=== PATIENT | male | born 1990 | race Hispanic/Latino ===

== ENCOUNTER 2021-03-20 06:36 | Inpatient (IN) | payer OTHER ==
--- OUTSIDE RECORDS SUMMARY | 2021-03-20 06:39 | XMS REPORT | Continuity of Care Document ---
:1990 Author Organization [facility] t Address [address] [place] [address] Dr. Hudson [address] [place] [id number] Care Team Providers Name Role Phone Unavailable Unavailable Unavailable Problems This patient has no known problems. Allergies, Adverse Reactions, Alerts This patient has no known allergies or adverse reactions. Medications This patient has no known medications. Procedures This patient has no known procedures. Results This patient has no known results.
[2021-03-20 08:07] LABS: Absolute Lymphocytes (CBC) 1.4 K/uL (0.7-4.9); Hematocrit 46.3 % (39.6-49.0); Lymphocytes % 11.1 % (15.3-44.8); MPV 7.7 fL (7.6-11.3); RBC Red Blood Cell Count 5.37 M/uL (4.33-5.43)
[2021-03-20] MEDS ORDERED: NA CHLORIDE 0.9% 1,000 ML ONE ×2 (08:12→08:44)
[2021-03-20] MEDS ORDERED: MORPHINE 4 MG/ML SYR ONE ×3 (08:12→12:19)
[2021-03-20] MEDS ORDERED: ONDANSETRON 4 MG/2 ML VIAL ONE ×3 (08:12→12:19)
[2021-03-20 08:20] LABS: Albumin 3.9 g/dL (3.4-5.0); Bilirubin Direct 0.1 mg/dL (0-0.2); Bilirubin Total 0.3 mg/dL (0.2-1.0); Potassium 3.9 mmol/L (3.5-5.1); Protein, Total 8.1 g/dL (6.4-8.2)
[2021-03-20] MEDS ORDERED: CIPROFLOXACIN 400mg IV 400 MG/200 ML BAG IV ONE (08:44)
[2021-03-20] MEDS ORDERED: METRONIDAZOLE 500mg IVPB 500 MG/100 ML BAG IV ONE (08:44)
--- NOTE | 2021-03-20 10:21 | RAD REPORT ---
EXAM DESCRIPTION: CT - Abdomen Pelvis W Contrast - 03/20/2021 10:04 am CLINICAL HISTORY: Abdominal pain. COMPARISON: 2013 TECHNIQUE: Computed axial tomography of the abdomen and pelvis was obtained. 100 cc Isovue-300 is ad ministered intravenously. Oral contrast was given. All CT scans are performed using dose optimization technique as appropriate and may include automated exposure control or mA/KV adjustment according to patient size. FINDINGS: The liver, spleen, pancreas, adrenals and kidneys appear unremarkable. Colectomy with Romana's pouch. Entire small bowel is mildly to moderately dilated. 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 A loop of small bowel is narrowed as it enters the osteotomy site resulting in obstruction. Small amount of ascites. IMPRESSION: A loop of ileum is obstructed as it enters a right lower quadrant ileostomy. Remainder of the small bowel is mildly to moderately dilated
--- NOTE | 2021-03-20 10:40 | EDPHYS ---
Physician Documentation [facility] Name: Roberth Thornton Age: 30 yrs Sex: Male : 1990 Arrival Date: 03/20/2021 Time: 06:43 Bed 13 Private MD: SONIDO Physician Ranadll Bartholomew HPI: 03/20 10:35 This 30 yrs old Male presents to ER via Ambulatory with complaints of wally Abdominal Pain. 10:35 The patient presents with abdominal pain in the upper abdomen, in the lower abdomen. wally Onset: The symptoms/episode began/occurred 3 day(s) ago. The symptoms do not radiate. Associated signs and symptoms: Pertinent positives: nausea and vomiting. Modifying factors: The symptoms are alleviated by nothing, the symptoms are aggravated by nothing. Severity of pain: At its worst the pain was moderate in the emergency department the pain is unchanged. The patient has not experienced similar symptoms in the past. Historical: - Allergies: 07:09 No Known Allergies; aa5 - PMHx: 07:09 Colon Cancer; aa5 - PSHx: 07:09 Colostomy; aa5 - Immunization history:: Adult Immunizations unknown. - Social history:: Smoking status: Patient reports the use of cigarette tobacco products, denies chronic smoking, but will smoke occasionally. - Family history:: not pertinent. ROS: 10:35 Constitutional: Negative for fever, chills, and weight loss, Eyes: Negative for injury, wally pain, redness, and discharge, ENT: Negative for injury, pain, and discharge, Neck: Negative for injury, pain, and swelling, Cardiovascular: Negative for chest pain, palpitations, and edema, Respiratory: Negative for shortness of breath, cough, wheezing, and pleuritic chest pain, Back: Negative for injury and pain, : Negative for injury, bleeding, discharge, and swelling, MS/Extremity: Negative for injury and deformity, Skin: Negative for injury, rash, and discoloration, Neuro: Negative for headache, weakness, numbness, tingling, and seizure, Psych: Negative for depression, anxiety, suicide ideation, homicidal ideation, and hallucinations, Allergy/Immunology: Negative for hives, rash, and allergies, Endocrine: Negative for neck swelling, polydipsia, polyuria, polyphagia, and marked weight changes, Hematologic/Lymphatic: Negative for swollen nodes, abnormal bleeding, and unusual bruising. 10:35 Abdomen/GI: Positive for abdominal pain, nausea and vomiting, of the right lower quadrant. Exam: 10:35 Constitutional: This is a well developed, well nourished patient who is awake, alert, wally and in no acute distress. Head/Face: Normocephalic, atraumatic. Eyes: Pupils equal round and reactive to light, extra-ocular motions intact. Lids and lashes normal. Conjunctiva and sclera are non-icteric and not injected. Cornea within normal limits. Periorbital areas with no swelling, redness, or edema. ENT: Nares patent. No nasal discharge, no septal abnormalities noted. Tympanic membranes are normal and external auditory canals are clear. Oropharynx with no redness, swelling, or masses, exudates, or evidence of obstruction, uvula midline. Mucous membranes moist. Neck: Trachea midline, no thyromegaly or masses palpated, and no cervical lymphadenopathy. Supple, full range of motion without nuchal rigidity, or vertebral point tenderness. No Meningismus. Chest/axilla: Normal chest wall appearance and motion. Nontender with no deformity. No lesions are appreciated. Cardiovascular: Regular rate and rhythm with a normal S1 and S2. No gallops, murmurs, or rubs. Normal PMI, no JVD. No pulse deficits. Respiratory: Lungs have equal breath sounds bilaterally, clear to auscultation and percussion. No rales, rhonchi or wheezes noted. No increased work of breathing, no retractions or nasal flaring. Back: No spinal tenderness. No costovertebral tenderness. Full range of motion. Male : Normal genitalia with no discharge or lesions. Skin: Warm, dry with normal turgor. Normal color with no rashes, no lesions, and no evidence of cellulitis. MS/ Extremity: Pulses equal, no cyanosis. Neurovascular intact. Full, normal range of motion. Neuro: Awake and alert, GCS 15, oriented to person, place, time, and situation. Cranial nerves II-XII grossly intact. Motor strength 5/5 in all extremities. Sensory grossly intact. Cerebellar exam normal. Normal gait. Psych: Awake, alert, with orientation to person, place and time. Behavior, mood, and affect are within normal limits. 10:35 Abdomen/GI: Inspection: abdomen appears normal, Bowel sounds: active, Palpation: mild abdominal tenderness, moderate abdominal tenderness, in the right upper quadrant, left upper quadrant and right lower quadrant, Liver: no appreciated palpable abnormalities, Hernia: not appreciated. Vital Signs: 06:57 BP 140 / 102; Pulse 75; Resp 18 S; Temp 98.4(O); Pulse Ox 99% on R/A; Weight 81.65 kg aa5 (R); Height 5 ft. 6 in. (167.64 cm) (R); Pain 10/10; 08:30 BP 130 / 89; Pulse 78; Resp 16 S; Pulse Ox 100% on R/A; aa5 10:39 BP 139 / 88; Pulse 74; Resp 16; Pulse Ox 100% on R/A; vg1 11:00 BP 126 / 93; Pulse 75; Resp 16; Pulse Ox 98% on R/A; vg1 12:00 BP 146 / 96; Pulse 74; Resp 14; Pulse Ox 100% ; vg1 13:00 BP 140 / 87; Pulse 70; Resp 16; Pulse Ox 100% on R/A; vg1 06:57 Body Mass Index 29.05 (81.65 kg, 167.64 cm) [facility] MDM: 07:23 Patient medically screened. wally 10:37 Differential diagnosis: bowel obstruction, cholecystitis, Cholelithiasis, wally diverticulitis, gastritis, Mesenteric ischemia or infarction, non-specific abd pain, pancreatitis, Peptic Ulcer Disease, Ureterolithiasis, urinary tract infection. Data reviewed: vital signs, nurses notes, lab test result(s), radiologic studies, CT scan. Data interpreted: teletypesetter monitor: rate is 78 beats/min, rhythm is regular, Pulse oximetry: on room air. Test interpretation: by ED physician or midlevel provider:. Counseling: I had a detailed discussion with the patient and/or guardian regarding: the historical points, exam findings, and any diagnostic results supporting the discharge/admit diagnosis, lab results, radiology results, the need for outpatient follow up, for definitive care, 03/20 07:44 Order name: Basic Metabolic Panel; Complete Time: 10:34 03/20 07:44 Order name: CBC with Diff [facility] 03/20 07:44 Order name: Hepatic Function; Complete Time: 10:34 [facility] 03/20 07:44 Order name: Lipase; Complete Time: 10:34 [facility] 03/20 10:52 Order name: Manual Differential EDMS 03/20 10:57 Order name: COVID-19 : Document "Date of Symptom Onset" if Symptomatic. eb 03/20 07:48 Order name: CT Abd/Pelvis - PO and IV Contrast; Complete Time: 10:34 hb 03/20 12:00 Order name: CORONAVIRUS EDMS 03/20 12:52 Order name: SARS-COV-2 RT PCR EDMS 03/20 07:44 Order name: IV Saline Lock; Complete Time: 07:44 aa5 03/20 07:44 Order name: Labs collected and sent; Complete Time: 07:44 aa5 Administered Medications: 07:54 Drug: Zofran (Ondansetron) 4 mg Route: IVP; Site: left antecubital; aa5 08:05 Follow up: Response: No adverse reaction aa5 07:56 Drug: morphine 4 mg Route: IVP; Site: left antecubital; aa5 08:05 Follow up: Response: No adverse reaction aa5 07:56 Drug: NS 0.9% 1000 ml Route: IV; Rate: 1 bolus; Site: left antecubital; aa5 09:15 Follow up: IV Status: Completed infusion; IV Intake: 1000ml aa5 08:34 Drug: Flagyl (metroNIDAZOLE) 500 mg Volume: 100 ml; Route: IVPB; Rate: 200 ml/hr; aa5 Infused Over: 30 mins; Site: left antecubital; 09:15 Follow up: Response: No adverse reaction; IV Status: Completed infusion aa5 08:34 Drug: NS 0.9% 1000 ml Route: IV; Rate: 125 ml/hr; Site: left antecubital; aa5 13:33 Follow up: IV Status: Infusion continued upon admission vg1 08:38 Drug: Zofran (Ondansetron) 4 mg Route: IVP; Site: left antecubital; aa5 09:15 Follow up: Response: No adverse reaction aa5 08:38 Drug: morphine 4 mg Route: IVP; Site: left antecubital; aa5 09:15 Follow up: Response: No adverse reaction; Pain is decreased aa5 09:15 Drug: Cipro (ciprofloxacin) 400 mg Volume: 200 ml; Route: IVPB; Infused Over: 60 mins; aa5 Site: left antecubital; 10:57 Follow up: IV Status: Completed infusion vg1 12:01 Drug: Zofran (Ondansetron) 4 mg Route: IVP; Site: left antecubital; vg1 12:44 Follow up: Response: No adverse reaction vg1 12:03 Drug: morphine 4 mg Route: IVP; Site: left antecubital; vg1 12:44 Follow up: Response: No adverse reaction; Pain is decreased vg1 13:45 Drug: Phenergan (promethazine) 12.5 mg Route: IVP; Site: left antecubital; vg1 13:50 Follow up: Response: Medication administered at discharge. vg1 Disposition: 03/20/21 10:40 Hospitalization ordered by Mitch Carter for Inpatient Admission. Preliminary diagnosis are Other intestinal obstruction - small bowel, ileostomy and parastomal hernia, Abdominal tenderness. - Bed requested for Telemetry/MedSurg (Inpatient). - Status is Inpatient Admission. vg1 - Condition is Stable. - Problem is new. - Symptoms have improved. Signatures: Dispatcher [employer] EDSC Randall Bartholomew MD MD cha Calderon, Audri, RN RN aa5 Heidi Ellis, ZABRINA RN Hina Wilkes Victoria, RN RN vg1 Corrections: (The following items were deleted from the chart) 13:20 10:40 Hospitalization Ordered by Mitch Carter MD for Inpatient Admission. Preliminary eb diagnosis is Other intestinal obstruction - small bowel, ileostomy and parastomal hernia; Abdominal tenderness. Bed requested for Telemetry/MedSurg (Inpatient). Status is Inpatient Admission. Condition is Stable. Problem is new. Symptoms have improved. wally 13:49 13:20 03/20/2021 10:40 Hospitalization Ordered by Mitch Carter MD for Inpatient vg1 Admission. Preliminary diagnosis is Other intestinal obstruction - small bowel, ileostomy and parastomal hernia; Abdominal tenderness. Bed requested for Telemetry/MedSurg (Inpatient). Status is Inpatient Admission. Condition is Stable. Problem is new. Symptoms have improved. eb
--- NOTE | 2021-03-20 10:40 | ER ---
Nurse's Notes [facility] Name: Roberth Thornton Age: 30 yrs Sex: Male : 1990 Arrival Date: 03/20/2021 Time: 06:43 Bed 13 Private MD: Diagnosis: Other intestinal obstruction-small bowel, ileostomy and parastomal hernia;Abdominal tenderness Presentation: 03/20 06:57 Chief complaint: Patient states: generalized abd pain since last night, nausea, denies aa5 vomiting. Reports no output to colostomy bag. Reports last meal was last night at 2100. 06:57 Coronavirus screen: At this time, the client does not indicate any symptoms associated aa5 with coronavirus-19. Ebola Screen: Patient negative for fever greater than or equal to 101.5 degrees Fahrenheit, and additional compatible Ebola Virus Disease symptoms. Initial Sepsis Screen: Does the patient meet any 2 criteria? No. Patient's initial sepsis screen is negative. Does the patient have a suspected source of infection? No. Patient's initial sepsis screen is negative. Risk Assessment: Do you want to hurt yourself or someone else? Patient reports no desire to harm self or others. Onset of symptoms was March 2021. 06:57 Acuity: TRAY 3 aa5 06:57 Method Of Arrival: Ambulatory aa5 Historical: - Allergies: 07:09 No Known Allergies; aa5 - PMHx: 07:09 Colon Cancer; aa5 - PSHx: 07:09 Colostomy; aa5 - Immunization history:: Adult Immunizations unknown. - Social history:: Smoking status: Patient reports the use of cigarette tobacco products, denies chronic smoking, but will smoke occasionally. - Family history:: not pertinent. Screenin:44 Abuse screen: Denies threats or abuse. Nutritional screening: No deficits noted. aa5 Tuberculosis screening: No symptoms or risk factors identified. Fall Risk None identified. Assessment: 07:10 General: Appears uncomfortable, Behavior is calm, cooperative. Pain: Complains of pain aa5 in right upper quadrant, left upper quadrant, right lower quadrant and left lower quadrant Pain currently is 10 out of 10 on a pain scale. Pain began "last night" Is continuous. Neuro: Level of Consciousness is awake, alert, obeys commands, Oriented to person, place, time, situation. Cardiovascular: Heart tones S1 S2 present Rhythm is regular. Respiratory: Airway is patent Respiratory effort is even, unlabored, Respiratory pattern is regular, symmetrical. GI: Abdomen is round non-distended, Colostomy site is clean and dry. Ostomy appliance is intact. Ostomy appears healthy and protruded which pt reports is baseline. Bowel sounds present X 4 quads. Abdomen is tender to palpation X 4 quads. Reports nausea, Patient currently denies vomiting, Reports no output to colostomy. : No signs and/or symptoms were reported regarding the genitourinary system. EENT: No signs and/or symptoms were reported regarding the EENT system. Derm: Skin is pink, warm \\T\\ dry. Musculoskeletal: Range of motion: intact in all extremities. 07:54 Reassessment: No changes from previously documented assessment. Patient is alert, aa5 oriented x 3, equal unlabored respirations, skin warm/dry/pink. 08:30 Reassessment: Pt ambulatory to restroom. . aa5 08:34 Reassessment: Patient is alert, oriented x 3, equal unlabored respirations, skin aa5 warm/dry/pink. Pt denies nausea, pt currently drinking CT oral contrast. Pt reports pain is a 9/10, reports no improvement to pain. . 08:40 Reassessment: Patient is alert, oriented x 3, equal unlabored respirations, skin aa5 warm/dry/pink. Pt finished CT oral contrast, CT notified.. 09:15 Reassessment: Patient is alert, oriented x 3, equal unlabored respirations, skin aa5 warm/dry/pink. Patient states feeling better. Pt reports pain has decreased to 6/10 on [address] scale. Awaiting CT scan, pt aware of wait time. . 09:57 Reassessment: Patient appears in no apparent distress at this time. Patient and/or vg1 family updated on plan of care and expected duration. Pain level reassessed. Patient is alert, oriented x 3, equal unlabored respirations, skin warm/dry/pink. Pt taken to CT. 11:57 Reassessment: Received VO from DR Bartholomew to administer 4 mg Morphine IVP x1 and 4 mg vg1 Zofran IVP x1. 12:44 Reassessment: Patient appears in no apparent distress at this time. Patient and/or vg1 family updated on plan of care and expected duration. Pain level reassessed. Patient is alert, oriented x 3, equal unlabored respirations, skin warm/dry/pink. 13:05 Reassessment: Patient appears in no apparent distress at this time. Patient and/or vg1 family updated on plan of care and expected duration. Pain level reassessed. Patient is alert, oriented x 3, equal unlabored respirations, skin warm/dry/pink. 13:43 Reassessment: Received VO from DR Bartholomew to administer Phenergan 12.5 mg IVP x1. vg1 Vital Signs: 06:57 BP 140 / 102; Pulse 75; Resp 18 S; Temp 98.4(O); Pulse Ox 99% on R/A; Weight 81.65 kg aa5 (R); Height 5 ft. 6 in. (167.64 cm) (R); Pain 10/10; 08:30 BP 130 / 89; Pulse 78; Resp 16 S; Pulse Ox 100% on R/A; aa5 10:39 BP 139 / 88; Pulse 74; Resp 16; Pulse Ox 100% on R/A; vg1 11:00 BP 126 / 93; Pulse 75; Resp 16; Pulse Ox 98% on R/A; vg1 12:00 BP 146 / 96; Pulse 74; Resp 14; Pulse Ox 100% ; vg1 13:00 BP 140 / 87; Pulse 70; Resp 16; Pulse Ox 100% on R/A; vg1 06:57 Body Mass Index 29.05 (81.65 kg, 167.64 cm) aa5 ED Course: 06:43 Patient arrived in ED. mr 06:57 Arm band placed on Patient placed in an exam room, on a stretcher. aa5 07:00 Patient has correct armband on for positive identification. Bed in low position. Call [facility] light in reach. Side rails up X 1. Adult w/ patient. Pulse ox on. NIBP on. 07:05 Pilar Rodgers, ZABRINA is Primary Nurse. aa 07:09 Triage completed. aa5 07:23 Randall Bartholomew MD is Attending Physician. [facility] 07:44 Initial lab(s) drawn, by me, sent to lab. Missed attempt(s): 20 gauge in right aa5 antecubital area. Bleeding controlled, band aid applied, catheter tip intact. Inserted saline lock: 20 gauge in left antecubital area, using aseptic technique. Blood collected. 09:56 Primary Nurse role handed off by Pilar Rodgers RN vg1 09:56 Sapna Valenzuela RN is Primary Nurse. vg1 10:00 Report given to ZABRINA Alejo. aa5 10:05 CT Abd/Pelvis - PO and IV Contrast In Process Unspecified. EDMS 10:38 Mitch Carter MD is Hospitalizing Provider. [facility] 13:30 No provider procedures requiring assistance completed. Patient admitted, IV remains in vg1 place. Administered Medications: 07:54 Drug: Zofran (Ondansetron) 4 mg Route: IVP; Site: left antecubital; aa5 08:05 Follow up: Response: No adverse reaction aa5 07:56 Drug: morphine 4 mg Route: IVP; Site: left antecubital; aa5 08:05 Follow up: Response: No adverse reaction aa5 07:56 Drug: NS 0.9% 1000 ml Route: IV; Rate: 1 bolus; Site: left antecubital; aa5 09:15 Follow up: IV Status: Completed infusion; IV Intake: 1000ml aa5 08:34 Drug: Flagyl (metroNIDAZOLE) 500 mg Volume: 100 ml; Route: IVPB; Rate: 200 ml/hr; aa5 Infused Over: 30 mins; Site: left antecubital; 09:15 Follow up: Response: No adverse reaction; IV Status: Completed infusion aa5 08:34 Drug: NS 0.9% 1000 ml Route: IV; Rate: 125 ml/hr; Site: left antecubital; aa5 13:33 Follow up: IV Status: Infusion continued upon admission vg1 08:38 Drug: Zofran (Ondansetron) 4 mg Route: IVP; Site: left antecubital; aa5 09:15 Follow up: Response: No adverse reaction aa5 08:38 Drug: morphine 4 mg Route: IVP; Site: left antecubital; aa5 09:15 Follow up: Response: No adverse reaction; Pain is decreased aa5 09:15 Drug: Cipro (ciprofloxacin) 400 mg Volume: 200 ml; Route: IVPB; Infused Over: 60 mins; aa5 Site: left antecubital; 10:57 Follow up: IV Status: Completed infusion vg1 12:01 Drug: Zofran (Ondansetron) 4 mg Route: IVP; Site: left antecubital; vg1 12:44 Follow up: Response: No adverse reaction vg1 12:03 Drug: morphine 4 mg Route: IVP; Site: left antecubital; vg1 12:44 Follow up: Response: No adverse reaction; Pain is decreased vg1 13:45 Drug: Phenergan (promethazine) 12.5 mg Route: IVP; Site: left antecubital; vg1 13:50 Follow up: Response: Medication administered at discharge. vg1 Intake: 09:15 IV: 1000ml; Total: 1000ml. aa5 Outcome: 10:40 Decision to Hospitalize by Provider. wally 13:30 Admitted to Med/surg accompanied by tech, via wheelchair, room 427, with chart, Report vg1 called to ZABRINA Gross 13:30 Condition: stable 13:30 Instructed on the need for admit. 13:49 Patient left the ED. vg1 Signatures: Dispatcher [employer] Randall Squires MD MD cha Rivera, Mary mr Calderon, Audri, RN RN aa5 Sapna Valenzuela RN RN vg1
[2021-03-20 10:53] LABS: Blood Morphology Comment NOT SEEN (NOT SEEN); Platelet Estimate ADEQ
[2021-03-20 14:00] VITALS: BMI 29.0
[2021-03-20] MEDS ORDERED: PROMETHAZINE INJ 25 MG/ML AMP ONE (14:03)
[2021-03-20] MEDS ORDERED: ACETAMINOPHEN 500 MG TAB PO PRN (14:12)
[2021-03-20] MEDS ORDERED: MORPHINE 4 MG/ML SYR IV PRN ×2 (14:12→16:11)
[2021-03-20] MEDS: METRONIDAZOLE 500mg IVPB 500 MG/100 ML BAG IV SCH ×2 (14:30→20:36)
[2021-03-20] MEDS: D5 0.45 NS 1,000 ML IV SCH ×2 (14:43→22:25)
[2021-03-20] MEDS ORDERED: DIAZEPAM 5 MG TABLET PO ONE (16:16)
--- NOTE | 2021-03-20 16:55 | P.HP ---
Date of Service: 03/20/21 PC: This 30-year-old male presents emergency room with severe abdominal pain for diagnosis and treatment. HPC: Patient states he has been having nausea and vomiting for the last few days. Describes it as severe. Has also had cramping abdominal pain, and tenderness around his stoma. PMH: Crohn's disease PSHx: Ileostomy has a 5-year-old SOC: No known allergies is not on any medications. SYS REVIEW: No cough, wheeze, shortness of breath. No chest pain or palpitations. Denies any urinary complaints. States up until now has not had many problems with his stoma. He does not have a GI doctor nor a family doctor. O/E awake alert mildly uncomfortable at the moment HEENT: Within normal limits Chest: Air movement equal bilaterally ABD: Abdomen is soft, does have reducible hernia around his stoma. His stoma is viable. It is not tense and engorged. No bloody fluid and his ileostomy bag. LOCO: Intact DATA: CT scan suggested earlier partial small bowel obstruction. IMPRESSION: Patient appears to have a parastomal hernia that has been causing him some issues. PLAN: The patient the current time does not appear to be in surgical crisis. I have ordered some pain medicine and some muscle relaxants. At the current time would recommend we observe him. I asked him if he had ever discuss surgical op tions of possibly being Put back together. He said he had thought about a but never had actually discussing with a surgeon. He is not on any and medication for his Crohn's disease. Nor does not sound like the patient has any any flare- ups over the last 20 years. My plan would be to allow this partial small-bowel obstruction to resolve, get him in contact with a GI specialist for workup for e stablished in the state of his Crohn's disease. Perhaps at that point we can initiate some discussions with him about his surgical options and the where if and when would be the best time and place to get that done. He is agreeable with this. Will reassess in the a.m..
[2021-03-20] MEDS: ONDANSETRON 4 MG/2 ML VIAL IV PRN (20:35)
[2021-03-20] MEDS: FAMOTIDINE 20 MG/2 ML VIAL IV SCH (20:36)
[2021-03-20] MEDS: CIPROFLOXACIN 400mg IV 400 MG/200 ML BAG IV SCH (20:36)
[2021-03-20] MEDS ORDERED: MINERAL OIL 30 ML UCUP PO ONE (21:00)
[2021-03-21] MEDS: METRONIDAZOLE 500mg IVPB 500 MG/100 ML BAG IV SCH ×4 (02:30→20:12)
[2021-03-21] MEDS: MORPHINE 4 MG/ML SYR IV PRN ×2 (02:46→10:02)
[2021-03-21 04:07] LABS: Absolute Lymphocytes (CBC) 1.2 K/uL (0.7-4.9); Basophils % 0.1 % (0-1.3); Hematocrit 43.3 % (39.6-49.0); Lymphocytes % 10.8 % (15.3-44.8); MPV 7.6 fL (7.6-11.3); RBC Red Blood Cell Count 5.04 M/uL (4.33-5.43)
[2021-03-21 04:26] LABS: ALT/SGPT 43 U/L (12-78); AST/SGOT 18 U/L (15-37); Albumin 3.2 g/dL (3.4-5.0); Alkaline Phosphatase 99 U/L (45-117); BUN Blood Urea Nitrogen 5 mg/dL (7-18); Bicarbonate 31 mmol/L (21-32); Bilirubin Direct 0.1 mg/dL (0-0.2); Bilirubin Total 0.6 mg/dL (0.2-1.0); Glucose Level 122 mg/dL (74-106); Lipase 116 U/L (73-393); Potassium 4.3 mmol/L (3.5-5.1); Protein, Total 7.1 g/dL (6.4-8.2); Sodium Level 140 mmol/L (136-145)
[2021-03-21] MEDS: D5 0.45 NS 1,000 ML IV SCH ×3 (07:20→17:47)
[2021-03-21] MEDS: CIPROFLOXACIN 400mg IV 400 MG/200 ML BAG IV SCH ×2 (08:25→20:12)
[2021-03-21] MEDS: FAMOTIDINE 20 MG/2 ML VIAL IV SCH ×2 (08:27→20:12)
[2021-03-21] MEDS: ONDANSETRON 4 MG/2 ML VIAL IV PRN (10:02)
--- NOTE | 2021-03-21 16:11 | P.PN ---
Date of Service: 03/21/21 S: Patient states he feels so much better today. Minimal discomfort. Has been up ambulating. Still no bowel movement or gas in his bag however. When he woke up this morning, the intestines were reduced inside. Now because he has been up there protruding. O: The is soft, minimal tenderness, no guarding or rebound. A: Partial small bowel obstruction due to his parastomal hernia which is been reduced (now it is a out but is reducible). P: Once again, I discussed the patient's options. I explained to him should be go and have to repair his parastomal hernia, that would involve an operation potential risks and benefits. I also told him that he may be a candidate to have this reversed. My plan is to allow him to explore his options with a player development manager and surgical team to see about having the colostomy reversed once and for all. He is interested in this possibility. At the moment, he does not require urgent surgical intervention. Most likely will be able to discharge him in the a.m.. I have started him on a soft mechanical diet.
[2021-03-21] MEDS ORDERED: MINERAL OIL 30 ML UCUP PO ONE (20:00)
[2021-03-21] MEDS ORDERED: DIAZEPAM 5 MG TABLET PO ONE (21:00)
[2021-03-22] MEDS: D5 0.45 NS 1,000 ML IV SCH ×2 (01:59→06:12)
[2021-03-22] MEDS: METRONIDAZOLE 500mg IVPB 500 MG/100 ML BAG IV SCH ×3 (02:00→14:30)
[2021-03-22 08:03] VITALS: O2SAT 95
[2021-03-22] MEDS: CIPROFLOXACIN 400mg IV 400 MG/200 ML BAG IV SCH (08:15)
[2021-03-22] MEDS: FAMOTIDINE 20 MG/2 ML VIAL IV SCH (08:15)
[2021-03-22 08:47] LABS: Absolute Lymphocytes (CBC) 1.5 K/uL (0.7-4.9); Basophils % 0.5 % (0-1.3); Lymphocytes % 26.6 % (15.3-44.8); MPV 7.5 fL (7.6-11.3)
[2021-03-22 16:34] VITALS: BP 112/59; TEMP 97.5
--- NOTE | 2021-03-29 14:25 | P.DS ---
Admission Date: 03/20/21 Discharge Date: 03/29/21 Discharge Condition: GOOD Reason for Admission: Peristomal hernia, partial small-bowel obstruction Brief History of Present Illness: This patient, who was had a stoma since childhood, present with partial small- bowel obstruction with a parastomal hernia. Hospital Course: The patient was admitted to the hospital. He received IV fluids. He was given pain medicine and some anxiolytics. He was also given some mineral oil. His stoma was reduced, and over the course next 24 hr his symptoms gradually resolved. He was deemed fit for discharge at that time. This patient, has an ileostomy. I recommended that he go to see a colorectal surgeon for possible reversal. He was not aware that this was a possibility. Vital Signs/Physical Exam: Temp Pulse Resp BP Pulse Ox 97.5 F 73 16 112/59 L 98 03/22/21 16:00 03/22/21 16:00 03/22/21 16:00 03/22/21 16:00 03/22/21 16:00 Laboratory Data at Discharge: WBC 5.80 K/uL (4.3-10.9) D 03/22/21 08:31 Hgb 13.2 g/dL (13.6-17.9) L 03/22/21 08:31 Hct 40.0 % (39.6-49.0) 03/22/21 08:31 Plt Count 180 K/uL (152-406) 03/22/21 08:31 Sodium 140 mmol/L (136-145) 03/21/21 03:10 Potassium 4.3 mmol/L (3.5-5.1) 03/21/21 03:10 BUN 5 mg/dL (7-18) L 03/21/21 03:10 Creatinine 0.92 mg/dL (0.55-1.3) 03/21/21 03:10 Glucose 122 mg/dL (74-106) H 03/21/21 03:10 Total Bilirubin 0.6 mg/dL (0.2-1.0) 03/21/21 03:10 AST 18 U/L (15-37) 03/21/21 03:10 ALT 43 U/L (12-78) 03/21/21 03:10 Alkaline Phosphatase 99 U/L (45-117) 03/21/21 03:10 Lipase 116 U/L (73-393) 03/21/21 03:10 Home Medications: NK [No Home Meds] 03/20/21 Diet: Regular Activity: Ad edwin Followup: NONE,NONE [Primary Care Provider] -
== END 2021-03-22 16:41 | disposition home or self-care (01) | DRG 394 ==
LOC: ER 06:36 → ERHOLD 10:56 → 4TH 13:31
PROVIDERS: ADMIT Surgery; ATTEND Surgery
DX: K43.5 Parastomal hernia without obstruction or gangrene (principal); K56.600 Partial intestinal obstruction, unspecified as to cause; F17.210 Nicotine dependence, cigarettes, uncomplicated; Z85.038 Personal history of other malignant neoplasm of large intestine; Z90.49 Acquired absence of other specified parts of digestive tract; Z93.2 Ileostomy status; Z20.822 Contact with and (suspected) exposure to COVID-19
CPT/HCPCS: 36415; 74177; 80048; 80076; 83690; 85025; 96361; 96365; 96367; 96375; 99285; J0744; J2405; J2550; J7030; J7799; Q9967; U0003